=== PATIENT | female | born 1945 | race African-American/Black ===

== ENCOUNTER 2019-09-11 23:31 | Emergency (ER) | payer OTHER, MEDICAID ==
[~2019-09-11] VITALS: Ht 165.1 cm; Wt 76.0 kg
[2019-09-12] MEDS ORDERED: MECLIZINE 25MG TABLET PO ONE ×2 (02:00→02:15)
[2019-09-12] MEDS ORDERED: ONDANSETRON 4MG ODT PO ONE (02:00)
[2019-09-12] MEDS ORDERED: DIAZEPAM 5 MG TABLET PO ONE (02:15)
[2019-09-12] MEDS ORDERED: SODIUM CHLORIDE 0.9% 1,000 ML IV ONE (02:15)
[2019-09-12 07:09] VITALS: BP 155/79
== END 2019-09-12 07:10 | disposition home or self-care (01) ==
LOC: ER 23:31
DX: R42 Dizziness and giddiness (principal); D64.9 Anemia, unspecified; K21.9 Gastro-esophageal reflux disease without esophagitis
CPT/HCPCS: 93005; 96360; 99284; J7030; J8597; Q0162

== ENCOUNTER 2021-05-24 00:18 | Emergency (ER) | payer OTHER, MEDICAID ==
[~2021-05-24] VITALS: Ht 165.1 cm; Wt 71.0 kg
[2021-05-24] MEDS ORDERED: IBUPROFEN 400MG TABLET PO ONE (01:00)
[2021-05-24 01:02] VITALS: BP 138/56
[2021-05-24 01:15] LABS: CLARITY URINE CLEAR (CLEAR); COLOR URINE YELLOW (YELLOW); KETONES URINE NEGATIVE (NEGATIVE); LEUKOCYTE ESTERASE URINE 1+ (NEGATIVE); NITRITE URINE NEGATIVE (NEGATIVE); OCCULT BLOOD URINE NEGATIVE (NEGATIVE); PROTEIN URINE TRACE (NEGATIVE); SPECIFIC GRAVITY URINE 1.012 (1.005-1.030)
[2021-05-24] MEDS ORDERED: CEPH250C2 MT (01:57)
[2021-05-24] MEDS ORDERED: MECL-159 MT (01:57)
== END 2021-05-24 03:22 | disposition home or self-care (01) ==
LOC: ER 00:18
DX: N12 Tubulo-interstitial nephritis, not specified as acute or chronic (principal); R42 Dizziness and giddiness; R03.0 Elevated blood-pressure reading, without diagnosis of hypertension
CPT/HCPCS: 81003; 93005; 99284